=== PATIENT | male | born 1940 | race Caucasian/White ===

== ENCOUNTER 2017-02-12 08:00 | Outpatient (CLI) | payer MEDICARE, OTHER | END 2017-02-12 23:59 | DX: N18.9 Chronic kidney disease, unspecified (principal); R53.83 Other fatigue ==

== ENCOUNTER 2017-04-16 08:00 | Outpatient (CLI) | payer MEDICARE, OTHER ==
[2017-04-16 14:02] LABS: CALCIUM 9.2 mg/dL (8.5-10.3); CREATININE 1.4 mg/dL (0.6-1.2); POTASSIUM 4.1 mmol/L (3.5-5.0)
== END 2017-04-16 08:01 | disposition home or self-care (01) ==
LOC: LAB.WCP 08:00
PROVIDERS: ATTEND Physician Assistant Medical
DX: N18.9 Chronic kidney disease, unspecified (principal)
CPT/HCPCS: 36415; 80048

== ENCOUNTER 2017-05-12 09:21 | Outpatient (CLI) | payer MEDICARE, OTHER ==
[2017-05-12 12:59] LABS: BASOPHILS % (AUTO) 0.6 %; EOSINOPHILS # (AUTO) 0.2 10^3/uL (0.0-0.7); HCT - HEMATOCRIT 39.2 % (42.0-52.0); HGB - HEMOGLOBIN 13.4 g/dL (14.0-18.0); LYMPHOCYTES # (AUTO) 0.8 10^3/uL (1.5-3.5); MEAN CORPUSCULAR HEMOGLOBIN 30.2 pg (27.0-31.0); MEAN CORPUSCULAR VOLUME 88.8 fL (80.0-94.0); MEAN PLATELET VOLUME 8.2 fL (7.4-11.4); MONOCYTES # (AUTO) 0.6 10^3/uL (0.0-1.0); NEUTROPHILS # (AUTO) 5.4 10^3/uL (1.5-6.6); NEUTROPHILS % (AUTO) 76.4 %; RED BLOOD COUNT 4.42 10^6/uL (4.70-6.10); RED CELL DISTRIBUTION WIDTH 13.5 % (12.0-15.0)
[2017-05-12 13:10] LABS: ALBUMIN/GLOBULIN RATIO 1.7 (1.0-2.2); CALCIUM 9.3 mg/dL (8.5-10.3); CREATININE 1.5 mg/dL (0.6-1.2); POTASSIUM 4.3 mmol/L (3.5-5.0)
== END 2017-05-12 09:22 | disposition home or self-care (01) ==
LOC: LAB.WCP 09:21
PROVIDERS: ATTEND Physician Assistant Medical
DX: R42 Dizziness and giddiness (principal); Z51.81 Encounter for therapeutic drug level monitoring
CPT/HCPCS: 36415; 80053; 85025

== ENCOUNTER 2017-05-13 13:28 | Outpatient (CLI) | payer MEDICARE, OTHER ==
--- NOTE | 2017-05-14 08:05 | Ultrasound Report ---
CAROTID DUPLEX: 05/13/2017 CLINICAL HISTORY: Dizziness and giddiness. TECHNIQUE: Real-time sonographic vascular imaging was performed by the agricultural education professor through the carotid arteries utilizing both color-flow and Doppler spectral analysis. Multiple veterans employment representative static images were saved for review. Vessel PSV cm/sec 2D Plaque Estimate % ICA/CCA PSV EDV cm/sec % Stenosis RCCA Prox 83 -- RCCA Dist 84 22 RECA 99 -- RT BULB 68 -- 0.81 9 YAIR Prox 71 -- 0.85 26 YAIR Mid 101 -- 1.20 39 YAIR Dist 124 -- 1.48 48 RVA 89 RVA flow direction: Antegrade. Vessel PSV cm/sec 2D Plaque Estimate % ICA/CCA PSV EDV cm/sec % Stenosis LCCA Prox 132 -- LCCA Dist 105 23 LECA 121 -- LFT BULB 87 -- 0.83 26 LICA Prox 85 -- 0.81 30 LICA Mid 81 -- 0.77 31 LICA Dist 82 -- 0.78 31 LVA 40 LVA flow direction: Antegrade. Velocity criteria are extrapolated from diameter data as defined by the Society of Radiologists in Ultrasound Consensus Conference Radiology 2003; 229; 340-346. Degree of Stenosis % ICA PSV cm/sec Plaque Estimate % ICA/CCA RSV Ratio ICA EDV cm/sec Normal < 125 None < 2.0 < 40 <50 < 125 < 50 < 2.0 < 40 50-69 125 - 130 >/= 50 2.0 - 4.0 40 - 100 >/= 70 but less than near occlusion > 230 >/= 50 > 4.0 > 100 Near occlusion High, low, or undetectable Visible lumen Variable Variable Total occlusion Undetectable No detectable lumen Not applicable Not applicable FINDINGS: The examination was done with a [employer] color Doppler scanning system. RIGHT: The right carotid artery demonstrates minimal plaque at its bifurcation. No hemodynamically significant stenosis is seen. Pulse Doppler indicates no hemodynamically significant stenosis in either the internal carotid or external carotid. The right vertebral artery appears to be the dominant vertebral artery and shows normal antegrade flow. LEFT: The left carotid artery shows mild plaque at its bifurcation some of which is calcific. Visually, no hemodynamically significant stenosis is seen. Pulse Doppler evaluation demonstrates no hemodynamically significant stenosis in either the left internal carotid artery or left external carotid artery. Antegrade flow is seen in the left vertebral artery. IMPRESSION: 1. MILD PLAQUE IS NOTED IN EACH CAROTID ARTERY BIFURCATION WITH NO HEMODYNAMICALLY SIGNIFICANT STENOSIS SEEN IN EITHER CAROTID ARTERY. 2. VERTEBRAL ARTERIES BILATERALLY SHOW ANTEGRADE FLOW. THE RIGHT VERTEBRAL ARTERY IS THE DOMINANT VERTEBRAL ARTERY. MACY
== END 2017-05-13 13:29 | disposition home or self-care (01) ==
LOC: DI 13:28
PROVIDERS: ATTEND Physician Assistant Medical
DX: R42 Dizziness and giddiness (principal)
CPT/HCPCS: 93880

== ENCOUNTER 2017-06-01 12:43 | Outpatient (CLI) | payer MEDICARE, OTHER | END 2017-06-01 12:44 | disposition home or self-care (01) | LOC: DI 12:43 | PROVIDERS: ATTEND Physician Assistant Medical | DX: R42 Dizziness and giddiness (principal); I51.7 Cardiomegaly | CPT/HCPCS: 93306 ==

== ENCOUNTER 2017-08-11 09:18 | Day surgery (SDC) | payer MEDICARE, OTHER ==
[2017-08-11] MEDS ORDERED: LACTATED RINGERS 1,000 ML IV ONE (09:34)
[2017-08-11] MEDS ORDERED: MIDAZOLAM 2 MG/2 ML VIAL IVP ONE (10:23)
[2017-08-11] MEDS ORDERED: fentaNYL 100 MCG/2 ML VIAL IVP ONE (10:23)
[2017-08-11 11:16] VITALS: BP 111/50
== END 2017-08-11 09:19 | disposition home or self-care (01) ==
LOC: SDS 09:18
PROVIDERS: ATTEND Internal Medicine
PROC: 0DJD8ZZ Inspection of Lower Intestinal Tract, Via Natural or Artificial Opening Endoscopic (ICD-10-PCS; principal; 2017-08-11 10:00)
DX: Z12.11 Encounter for screening for malignant neoplasm of colon (principal); Z86.010 Personal history of colon polyps; Z80.0 Family history of malignant neoplasm of digestive organs; I10 Essential (primary) hypertension; E78.00 Pure hypercholesterolemia, unspecified; N40.0 Benign prostatic hyperplasia without lower urinary tract symptoms
CPT/HCPCS: G0105; J7120

== ENCOUNTER 2017-09-10 11:44 | Outpatient (CLI) | payer MEDICARE, OTHER ==
--- NOTE | 2017-09-10 13:14 | CT Report ---
CT CHEST WITHOUT CONTRAST: 09/10/2017 CLINICAL INDICATION: Followup pulmonary nodule. COMPARISON: 07/15/2016, 09/13/2015 TECHNIQUE: Axial CT images of the chest were obtained without intravenous contrast. In accordance with CT protocol optimization, one or more of the following dose reduction techniques w ere utilized for this exam: automated exposure control, adjustment of mA and/or KV based on patient size, or use of iterative reconstructive technique. FINDINGS: The heart and great vessels demonstrate atherosclerotic calcifications. No hilar or media lymphadenopathy is appreciated. The lungs demonstrate dependent atelectasis. The subpleural nodule in the posterior left lower lobe is stable, measuring 5 mm. No effusion or pneumothorax is present. Limited evaluation of upper abdominal structures demonstrates normal adrenal glands. Osseous struc tures demonstrate degenerative changes. IMPRESSION: STABLE 5-MM NODULE IN THE POSTERIOR LEFT LOWER LOBE. NO FURTHER FOLLOWUP IS RECOMMENDED BY [employer]. JOB #: [id number] EXT JOB #:[id number]
== END 2017-09-10 11:45 | disposition home or self-care (01) ==
LOC: DI 11:44
PROVIDERS: ATTEND Physician Assistant Medical
DX: R91.1 Solitary pulmonary nodule (principal)
CPT/HCPCS: 71250

== ENCOUNTER 2018-06-28 16:00 | Emergency (ER) | payer MEDICARE, OTHER ==
--- NOTE | 2018-06-28 19:20 | Ultrasound Report ---
Procedure Date: 06/28/2018 Accession Number: [id number] / [id number] Procedure: US - Duplex Ext Veins Left CPT Code: FULL RESULT: EXAM: LEFT LOWER EXTREMITY VENOUS ULTRASOUND EXAM DATE: 06/28/2018 05:51 PM. CLINICAL HISTORY: Leg swelling and positive D-dimer test. COMPARISON: None. TECHNIQUE: Real-time sonographic vascular imaging was performed by the tennis net maker through the lower extremity utilizing both color-flow and Doppler spectral analysis. Multiple retail service representative static images were saved for review. FINDINGS: Common Femoral Vein (CFV): Normal. CFV-GSV Junction: Normal. Femoral Vein (FV) Prox: Normal. Femoral Vein (FV) Mid: Normal. Femoral Vein (FV) Dist: Normal. Popliteal Vein: Normal. Posterior Tibial Veins: Normal. Peroneal Veins: Normal. Contralateral Side CFV: Normal. Other: Mild soft tissue subcutaneous edema in the calf. IMPRESSION: No evidence for left lower extremity deep venous thrombosis. RADIA
--- NOTE | 2018-06-28 19:37 | ED Physician Documentation ---
PD HPI LOWER EXT INJURY - Stated complaint Stated Complaint: SENT BY DOC - Chief complaint Chief Complaint: Ext Problem - History obtained from History obtained from: Patient - History of Present Illness PD HPI LOW EXT INJURY LOCATION: Left, Lower leg, Ankle Type of injury: Other (has had increased edema in left leg the past couple of weeks. Has ongoing edema in right leg from prior DVT years ago. No noted injury. PMD did d-dimer in office and it was elevated, so referred him to ER for U/S.). No: Fall, Twist Timing - onset: How many weeks ago (1-2) Timing - details: Gradual onset, Still present Review of Systems Cardiac: denies: Chest pain / pressure, Palpitations Respiratory: denies: Dyspnea, Cough Skin: denies: Rash, Lesions PD PAST MEDICAL HISTORY - Past Medical History Cardiovascular: Hypertension, High cholesterol Respiratory: None Endocrine/Autoimmune: None GI: Colon polyps : Benign prostate hypertrophy HEENT: Chronic vision loss, Chronic hearing loss Psych: None Musculoskeletal: Chronic back pain Derm: Other - Past Surgical History Past Surgical History: Yes General: Cholecystectomy Ortho: Spine surgery, Other HEENT: Tonsil/Adenoidectomy - Present Medications Home Medications: Ambulatory Orders Medication Instructions Recorded Confirmed Lisinopril [Zestril] 5 mg PO DAILY 09/08/15 08/11/17 Cholecalciferol (Vitamin D3) 2,000 unit PO DAILY 09/27/15 08/11/17 [Vitamin D3] Lovastatin 40 mg PO DAILY 09/27/15 08/11/17 Zinc 50 mg PO DAILY 09/27/15 08/11/17 Chlorthalidone 25 mg PO DAILY 08/11/17 08/11/17 Furosemide [Lasix] 20 mg PO DAILY 08/11/17 08/11/17 Potassium Chloride [Micro-K] 10 meq PO DAILY 08/11/17 08/11/17 Tamsulosin HCl [Flomax] 0.4 mg PO DAILY 08/11/17 08/11/17 - Allergies Allergies/Adverse Reactions: Allergies Allergy/AdvReac Type Severity Reaction Status Date / Time No Known Drug Allergies Allergy Verified 06/28/18 16:07 - Social History Does the pt smoke?: No Smoking Status: Never smoker Does the pt drink ETOH?: No Does the pt have substance abuse?: No - Immunizations Immunizations are current?: Yes PD ED PE NORMAL - Vitals Vital signs reviewed: Yes - General General: Alert and oriented X 3, No acute distress, Well developed/nourished - Cardiac Cardiac: RRR, No murmur - Respiratory Respiratory: No respiratory distress, Clear bilaterally - Abdomen Abdomen: Soft, Non tender - Back Back: No CVA TTP - Derm Derm: Normal color, Warm and dry - Extremities Extremities: Other (2+ edema in both legs. Some tenderness laterally in left calf. No tenderness at popliteal area. ) - Neuro Neuro: Alert and oriented X 3, No motor deficit, No sensory deficit, Normal speech Results - Vitals Vitals: Vital Signs - 24 hr 06/28/18 06/28/18 16:04 19:44 Temperature 35.7 C L Heart Rate 75 68 Respiratory 16 17 Rate Blood Pressure 150/74 H 147/84 H O2 Saturation 98 98 Oxygen O2 Source Room air - Rads (name of study) left leg venous duplex Radiology: Prelim report reviewed (no DVT) PD MEDICAL DECISION MAKING - ED course Complexity details: reviewed results (duplex shows no DVT. Consider repeat U/S if symptoms worsen in about a week. ), considered differential (has had leg edema with history of DVT in the past, so PMD sent him to ER for U/S duplex after office d-dimer resulted high. ), d/w patient - Sepsis Event Vital Signs: Vital Signs - 24 hr 06/28/18 06/28/18 16:04 19:44 Temperature 35.7 C L Heart Rate 75 68 Respiratory 16 17 Rate Blood Pressure 150/74 H 147/84 H O2 Saturation 98 98 Oxygen O2 Source Room air Departure - Departure Disposition: 01 Home, Self Care Clinical Impression: Leg edema Clinical Impression: (Ruled Out): Deep venous thrombosis Condition: Stable Record reviewed to determine appropriate education?: Yes Instructions: ED Edema Legs Bilateral Follow-Up: Noel Cheema MD [Primary Care Provider] - Comments: Continue usual medications including the diuretics. Use compressive stockings during the day. Elevate your legs tonight. There are no signs of blood clot on your ultrasound. Discharge Date/Time: 06/28/18 19:47
[2018-06-28 19:45] VITALS: BP 147/84
== END 2018-06-28 19:47 | disposition home or self-care (01) ==
LOC: ED 16:00
DX: R60.0 Localized edema (principal); Z86.718 Personal history of other venous thrombosis and embolism; I10 Essential (primary) hypertension; E78.00 Pure hypercholesterolemia, unspecified
CPT/HCPCS: 99283

== ENCOUNTER 2019-06-26 08:00 | Outpatient (CLI) | payer MEDICARE, OTHER ==
[2019-06-26 12:51] LABS: BASOPHILS % (AUTO) 0.3 %; EOSINOPHILS # (AUTO) 0.3 10^3/uL (0.0-0.7); HGB - HEMOGLOBIN 14.1 g/dL (14.0-18.0); LYMPHOCYTES # (AUTO) 0.9 10^3/uL (1.5-3.5); LYMPHOCYTES % (AUTO) 12.7 %; MEAN CORPUSCULAR HEMOGLOBIN 28.5 pg (27.0-31.0); MEAN CORPUSCULAR HGB CONC 31.4 g/dL (32.0-36.0); MEAN CORPUSCULAR VOLUME 90.9 fL (80.0-94.0); MEAN PLATELET VOLUME 10.6 fL (7.4-11.4); MONOCYTES # (AUTO) 0.6 10^3/uL (0.0-1.0); MONOCYTES % (AUTO) 8.1 %; PLT - PLATELET COUNT 161 10^3/uL (130-450); RED BLOOD COUNT 4.94 10^6/uL (4.70-6.10); RED CELL DISTRIBUTION WIDTH 14.2 % (12.0-15.0); WHITE BLOOD COUNT 6.8 x10^3/uL (4.8-10.8)
[2019-06-26 13:18] LABS: ALBUMIN 4.1 g/dL (3.2-5.5); ALBUMIN/GLOBULIN RATIO 1.6 (1.0-2.2); ALKALINE PHOSPHATASE 58 IU/L (42-121); ALT ALANINE AMINOTRANSFERASE 22 IU/L (10-60); AST ASPARTATE AMINOTRANSFERASE 18 IU/L (10-42); BILIRUBIN,TOTAL 1.3 mg/dL (0.2-1.0); BUN - BLOOD UREA NITROGEN 19 mg/dL (6-20); CALCIUM 9.2 mg/dL (8.5-10.3); CARBON DIOXIDE - CO2 25 mmol/L (21-32); CHLORIDE 107 mmol/L (101-111); CHOL/HDL RATIO 4.2 (<5.0); CHOLESTEROL 147 mg/dL; CREATININE 1.3 mg/dL (0.6-1.2); GFR - MDRD 54 (>89); GLUCOSE 104 mg/dL (70-100); HDL CHOLESTEROL 35 mg/dL; HEMOGLOBIN A1C 0.63 g/dL; LDL CHOLESTEROL,CALCULATED 91 mg/dL; LDL/HDL RATIO 2.6 (<3.6); SODIUM 142 mmol/L (135-145); TOTAL PROTEIN 6.6 g/dL (6.7-8.2); VLDL CHOLESTEROL 21 mg/dL
== END 2019-06-26 23:59 | disposition home or self-care (01) ==
LOC: LAB.WCP 08:00
PROVIDERS: ATTEND Family Medicine
DX: E78.00 Pure hypercholesterolemia, unspecified (principal); R73.01 Impaired fasting glucose; I10 Essential (primary) hypertension
CPT/HCPCS: 36415; 80053; 80061; 83036; 83721; 85025

== ENCOUNTER 2019-12-04 08:00 | Outpatient (CLI) | payer MEDICARE, OTHER ==
[2019-12-04 18:52] LABS: ALBUMIN 4.4 g/dL (3.2-5.5); ALKALINE PHOSPHATASE 58 IU/L (42-121); ALT ALANINE AMINOTRANSFERASE 26 IU/L (10-60); AST ASPARTATE AMINOTRANSFERASE 19 IU/L (10-42); BILIRUBIN,TOTAL 1.3 mg/dL (0.2-1.0); BUN - BLOOD UREA NITROGEN 24 mg/dL (6-20); CALCIUM 9.4 mg/dL (8.5-10.3); CARBON DIOXIDE - CO2 27 mmol/L (21-32); CHLORIDE 104 mmol/L (101-111); CHOL/HDL RATIO 3.8 (<5.0); CHOLESTEROL 159 mg/dL; CREATININE 1.3 mg/dL (0.6-1.2); GFR - MDRD 54 (>89); GLUCOSE 96 mg/dL (70-100); HDL CHOLESTEROL 42 mg/dL; LDL CHOLESTEROL,CALCULATED 98 mg/dL; LDL/HDL RATIO 2.3 (<3.6); SODIUM 140 mmol/L (135-145); TOTAL PROTEIN 6.6 g/dL (6.7-8.2); VLDL CHOLESTEROL 19 mg/dL
== END 2019-12-04 23:59 | disposition home or self-care (01) ==
LOC: LAB.WCP 08:00
PROVIDERS: ATTEND Physician Assistant Medical
DX: E78.00 Pure hypercholesterolemia, unspecified (principal); R73.01 Impaired fasting glucose
CPT/HCPCS: 36415; 80053; 80061; 83721

== ENCOUNTER 2021-01-16 08:00 | Outpatient (CLI) | payer MEDICARE, OTHER ==
[2021-01-16 17:55] LABS: BASOPHILS % (AUTO) 0.2 %; EOSINOPHILS # (AUTO) 0.1 10^3/uL (0.0-0.7); EOSINOPHILS % (AUTO) 1.6 %; HGB - HEMOGLOBIN 14.7 g/dL (14.0-18.0); LYMPHOCYTES # (AUTO) 0.8 10^3/uL (1.5-3.5); LYMPHOCYTES % (AUTO) 13.8 %; MEAN CORPUSCULAR HEMOGLOBIN 30.5 pg (27.0-31.0); MEAN CORPUSCULAR HGB CONC 33.2 g/dL (32.0-36.0); MEAN CORPUSCULAR VOLUME 91.9 fL (80.0-94.0); MEAN PLATELET VOLUME 10.3 fL (7.4-11.4); MONOCYTES # (AUTO) 0.4 10^3/uL (0.0-1.0); MONOCYTES % (AUTO) 7.1 %; NEUTROPHILS # (AUTO) 4.7 10^3/uL (1.5-6.6); NEUTROPHILS % (AUTO) 76.8 %; PLT - PLATELET COUNT 186 10^3/uL (130-450); RED BLOOD COUNT 4.82 10^6/uL (4.70-6.10); RED CELL DISTRIBUTION WIDTH 13.1 % (12.0-15.0); WHITE BLOOD COUNT 6.1 x10^3/uL (4.8-10.8)
[2021-01-16 18:06] LABS: ALBUMIN 4.4 g/dL (3.2-5.5); ALBUMIN/GLOBULIN RATIO 1.8 (1.0-2.2); ALKALINE PHOSPHATASE 66 IU/L (42-121); ALT ALANINE AMINOTRANSFERASE 18 IU/L (10-60); AST ASPARTATE AMINOTRANSFERASE 20 IU/L (10-42); BILIRUBIN,TOTAL 1.3 mg/dL (0.2-1.0); BUN - BLOOD UREA NITROGEN 18 mg/dL (6-20); CARBON DIOXIDE - CO2 28 mmol/L (21-32); CHLORIDE 101 mmol/L (101-111); CHOL/HDL RATIO 3.6 (<5.0); CHOLESTEROL 167 mg/dL; CREATININE 1.1 mg/dL (0.6-1.2); GLUCOSE 85 mg/dL (70-100); HDL CHOLESTEROL 46 mg/dL; LDL CHOLESTEROL,CALCULATED 108 mg/dL; LDL/HDL RATIO 2.3 (<3.6); TOTAL PROTEIN 6.9 g/dL (6.7-8.2); VLDL CHOLESTEROL 13 mg/dL
== END 2021-01-16 23:59 | disposition home or self-care (01) ==
LOC: LAB.WCP 08:00
PROVIDERS: ATTEND Physician Assistant Medical
DX: E78.00 Pure hypercholesterolemia, unspecified (principal); I10 Essential (primary) hypertension
CPT/HCPCS: 36415; 80053; 80061; 83721; 85025

== ENCOUNTER 2021-05-24 10:45 | Emergency (ER) | payer MEDICARE, OTHER ==
[2021-05-24] MEDS ORDERED: DEXAMETHASONE 10 MG/ML VIAL IVP STA (11:10)
--- NOTE | 2021-05-24 11:11 | ED Physician Documentation ---
PD HPI FOCAL NEURO - Stated complaint Stated Complaint: UNSTEADY/LEFT SIDE WEAKNESS - Chief complaint Chief Complaint: Neuro - History obtained from History obtained from: Patient, Family - History of Present Illness Timing - onset: Enter time (929), Today Timing - duration: Minutes Timing - details: Abrupt onset, Still present Severity of deficit: Moderate Weakness: Face, Left Numbness: No: Face, Arm, Hand, Leg, Foot, Right, Left Associated symptoms: No: Headache, Nausea / vomiting, Seizure, Syncope, Fall, Head injury, Chest pain, Neck pain, Back pain, Fever Contributing factors: negative: Anticoagulated Baseline status: positive: A&OX3, ambulatory, indep Similar symptoms before: Has not had sx before Recently seen: Not recently seen - Additional information Additional information: 80-year-old male was in his usual state of health and this morning he was shaving and he noticed that the left side of his face was drooped. He was able to smile. He denies any numbness or tingling to the left side of his body he denies any weakness to the left side. He is under a lot of stress with a son who has Covid and is in the hospital right now. Review of Systems Constitutional: denies: Fever Eyes: denies: Decreased vision Ears: denies: Loss of hearing, Ear pain, Drainage/discharge Nose: denies: Rhinorrhea / runny nose, Congestion Throat: denies: Sore throat Cardiac: denies: Chest pain / pressure, Palpitations Respiratory: denies: Dyspnea, Cough GI: denies: Abdominal Pain, Abdominal Swelling, Nausea, Vomiting, Diarrhea : denies: Dysuria, Frequency Skin: denies: Rash Musculoskeletal: denies: Neck pain, Back pain, Extremity pain Neurologic: reports: Focal weakness (Left face). denies: Generalized weakness, Numbness, Headache, Head injury, LOC PD PAST MEDICAL HISTORY - Past Medical History Cardiovascular: Hypertension, High cholesterol Respiratory: None Endocrine/Autoimmune: None GI: Colon polyps : Benign prostate hypertrophy HEENT: Chronic vision loss, Chronic hearing loss Psych: None Musculoskeletal: Chronic back pain Derm: Other - Past Surgical History Past Surgical History: Yes General: Cholecystectomy Ortho: Spine surgery, Other HEENT: Tonsil/Adenoidectomy - Present Medications Home Medications: Ambulatory Orders Medication Instructions Recorded Confirmed lisinopriL [Zestril] 10 mg PO DAILY 09/08/15 05/24/21 Cholecalciferol (Vitamin D3) 2,000 unit PO DAILY 09/27/15 05/24/21 [Vitamin D3] Zinc 50 mg PO DAILY 09/27/15 05/24/21 Furosemide [Lasix] 20 mg PO DAILY 08/11/17 05/24/21 Potassium Chloride [Micro-K] 10 meq PO DAILY 08/11/17 05/24/21 Tamsulosin HCl [Flomax] 0.4 mg PO DAILY 08/11/17 05/24/21 Simvastatin [Zocor] 40 mg PO HS 05/24/21 05/24/21 - Allergies Allergies/Adverse Reactions: Allergies Allergy/AdvReac Type Severity Reaction Status Date / Time No Known Drug Allergies Allergy Verified 05/24/21 11:05 - Social History Does the pt smoke?: No Smoking Status: Never smoker Does the pt drink ETOH?: No Does the pt have substance abuse?: No - Immunizations Immunizations are current?: Yes PD ED PE NORMAL - Vitals Vital signs reviewed: Yes (Hypertensive) - General General: Alert and oriented X 3, No acute distress, Well developed/nourished, Other (Resting facial expression has a droop to the left side.) - HEENT HEENT: Atraumatic, PERRL, EOMI, Ears normal, Moist mucous membranes, Pharynx benign, Dentition benign - Neck Neck: Supple, no meningeal sign, No bony TTP - Cardiac Cardiac: RRR, No murmur - Respiratory Respiratory: No respiratory distress, Clear bilaterally - Abdomen Abdomen: Normal bowel sounds, Soft, Non tender, Non distended, No organomegaly - Back Back: No CVA TTP, No spinal TTP - Derm Derm: Normal color, Warm and dry, No rash - Extremities Extremities: No deformity, No edema - Neuro Neuro: Alert and oriented X 3, care worker 2-12 intact, No motor deficit, No sensory deficit, Normal speech Eye Opening: Spontaneous Motor: Obeys Commands Verbal: Oriented GCS Score: 15 - Psych Psych: Normal mood, Normal affect NIHSS - Time Time: 11:20 - Level of Consciousness Level of consciousness: (0) Alert, Keenly responsive LOC Questions: (0) Answers both Q's correct LOC Commands: (0) Performs both correctly - Gaze Best Gaze: (0) Normal - Visual Visual: (0) No loss - Facial Palsy Facial Palsy: (1) Minor paralysis - Motor Arms (both separate) Motor Arm (right): (0) No drift Motor Arm (left): (0) No drift - Motor Legs (both separate) Motor Leg (right): (0) No drift Motor Leg (left): (0) No drift - Limb Ataxia Limb Ataxia: (0) Absent - Sensory Sensory: (0) Normal - Best Language Best Language: (0) No aphasia - Dysarthria Dysarthria: (0) Normal - Extinction and Inattention (formally neg Extinction and inattention: (0) No abnormality - Total Score/Results Total Score/Result: 1 Results - Vitals Vitals: Vital Signs - 24 hr 05/24/21 05/24/21 05/24/21 11:05 11:22 12:08 Temperature 36.6 C Heart Rate 77 63 61 Respiratory 20 22 14 Rate Blood Pressure 185/98 H 181/92 H 151/84 H O2 Saturation 96 94 95 Oxygen O2 Source Room air - EKG (time done) 1113 Rate: Rate (enter#) (63) Rhythm: NSR [place]: LAD Compare to prior EKG: Unchanged from prior EKG (SPT 09-14-2015 no changes) Computer interpretation: Agree with computer - Labs Labs: Laboratory Tests 05/24/21 05/24/21 10:55 10:55 WBC 6.8 RBC 4.99 Hgb 14.9 Hct 45.3 MCV 90.8 MCH 29.9 MCHC 32.9 RDW 12.9 Plt Count 177 MPV 9.6 Neut # (Auto) 5.3 Lymph # (Auto) 0.9 L [place] # (Auto) 0.4 Eos # (Auto) 0.1 Baso # (Auto) 0.0 Absolute Nucleated RBC 0.00 Nucleated RBC % 0.0 Sodium 138 Potassium 4.4 Chloride 104 Carbon Dioxide 24 Anion Gap 10.0 BUN 18 Creatinine 1.1 Estimated GFR (MDRD) 65 L Glucose 112 H Calcium 9.5 Total Bilirubin 1.7 H AST 17 ALT 16 Alkaline Phosphatase 70 Total Protein 7.4 Albumin 4.7 Globulin 2.7 Albumin/Globulin Ratio 1.7 Lipase 29 - Rads (name of study) CT head Radiology: Prelim report reviewed (Impression: 1. There is an age-related volume loss and mild to moderate periventricular white matter change consistent with small vessel ischemic change. No evidence of acute stroke, hemorrhage, or mass.), EMP read indepedently, See rad report PD MEDICAL DECISION MAKING - ED course Complexity details: reviewed results, re-evaluated patient, considered differential, d/w patient, d/w family ED course: 80-year-old male who is under stress has developed a left facial droop this appears to be an isolated finding it is only to the lower portion of the nerve.CT scan of the head is unremarkable. He is in sinus rhythm and has no other specific findings to be concern for stroke. 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 He is administered dexamethasone 10 mg intravenously. Departure - Departure Disposition: 01 Home, Self Care Clinical Impression: Choudhury's palsy Condition: Stable Instructions: ED Parsons Palsy Follow-Up: Swapna Qureshi PA-C [Primary Care Provider] -
[2021-05-24 11:22] LABS: BASOPHILS % (AUTO) 0.3 %; EOSINOPHILS # (AUTO) 0.1 10^3/uL (0.0-0.7); EOSINOPHILS % (AUTO) 1.6 %; HCT - HEMATOCRIT 45.3 % (42.0-52.0); HGB - HEMOGLOBIN 14.9 g/dL (14.0-18.0); LYMPHOCYTES # (AUTO) 0.9 10^3/uL (1.5-3.5); LYMPHOCYTES % (AUTO) 13.5 %; MEAN CORPUSCULAR HEMOGLOBIN 29.9 pg (27.0-31.0); MEAN CORPUSCULAR HGB CONC 32.9 g/dL (32.0-36.0); MEAN CORPUSCULAR VOLUME 90.8 fL (80.0-94.0); MEAN PLATELET VOLUME 9.6 fL (7.4-11.4); MONOCYTES # (AUTO) 0.4 10^3/uL (0.0-1.0); MONOCYTES % (AUTO) 6.5 %; NEUTROPHILS # (AUTO) 5.3 10^3/uL (1.5-6.6); NEUTROPHILS % (AUTO) 77.7 %; PLT - PLATELET COUNT 177 10^3/uL (130-450); RED BLOOD COUNT 4.99 10^6/uL (4.70-6.10); RED CELL DISTRIBUTION WIDTH 12.9 % (12.0-15.0); WHITE BLOOD COUNT 6.8 x10^3/uL (4.8-10.8)
[2021-05-24 11:44] LABS: ALBUMIN 4.7 g/dL (3.2-5.5); BILIRUBIN,TOTAL 1.7 mg/dL (0.2-1.0); CALCIUM 9.5 mg/dL (8.5-10.3); CREATININE 1.1 mg/dL (0.6-1.2); POTASSIUM 4.4 mmol/L (3.5-5.0); TOTAL PROTEIN 7.4 g/dL (6.7-8.2)
[2021-05-24 11:45] LABS: ALBUMIN/GLOBULIN RATIO 1.7 (1.0-2.2)
--- NOTE | 2021-05-24 11:59 | CT Report ---
PROCEDURE: HEAD WO INDICATIONS: left facial droop TECHNIQUE: Noncontrast 4.5 mm thick angled axial sections acquired from the foramen magnum to the vertex. For r adiation dose reduction, the following was used: automated exposure control, adjustment of mA and/or kV according to patient size. COMPARISON: None. FINDINGS: Image quality: Excellent. CSF spaces: Basal cisterns are patent. No extra-axial fluid collections. Ventricles are normal in size and shape. Brain: No midline shift. No intracranial masses or hemorrhage. Queen-white matter interface is norm al. Age-related volume loss and mild to moderate small vessel ischemic change. Skull and face: Calvarium and visualized facial bones are intact, without suspicious lesions. Sinuses: Visualized sinuses and mastoids are clear. IMPRESSION: 1. There is age-related volume loss and mild to moderate periventricular white matter change consiste nt with small vessel ischemic change. 2. No evidence of acute stroke, hemorrhage, or mass. Reviewed by: Giancarlo Rios MD on 05/24/2021 10:58 AM BUZZ Approved by: Giancarlo Rios MD on 05/24/2021 10:58 AM BUZZ Station ID: [id number]
[2021-05-24 12:09] VITALS: BP 151/84
== END 2021-05-24 12:49 | disposition home or self-care (01) ==
LOC: ED 10:45
DX: G51.0 Bell's palsy (principal)
CPT/HCPCS: 36415; 80053; 83690; 85025; 93005; 96374; 99284

== ENCOUNTER 2021-06-26 13:44 | Outpatient (CLI) | payer MEDICARE, OTHER | END 2021-06-26 13:45 | disposition short-term general hospital (02) | LOC: EMS 13:44 | DX: R55 Syncope and collapse (principal) | CPT/HCPCS: A0425; A0427 ==

== ENCOUNTER 2021-07-06 11:47 | Outpatient (CLI) | payer MEDICARE, OTHER | END 2021-07-06 11:48 | disposition short-term general hospital (02) | LOC: EMS 11:47 | DX: R55 Syncope and collapse (principal); R11.10 Vomiting, unspecified | CPT/HCPCS: A0425; A0427 ==

== ENCOUNTER 2021-08-12 21:12 | Outpatient (CLI) | payer MEDICARE, OTHER | END 2021-08-12 21:13 | disposition EMS.NT | LOC: EMS 21:12 | DX: Z03.89 Encounter for observation for other suspected diseases and conditions ruled out (principal) ==

== ENCOUNTER 2021-08-19 08:00 | Outpatient (CLI) | payer MEDICARE, OTHER ==
[2021-08-19 18:16] LABS: ALBUMIN 3.5 g/dL (3.2-5.5); ALBUMIN/GLOBULIN RATIO 1.3 (1.0-2.2); ALKALINE PHOSPHATASE 81 IU/L (42-121); ALT ALANINE AMINOTRANSFERASE 19 IU/L (10-60); AST ASPARTATE AMINOTRANSFERASE 15 IU/L (10-42); BILIRUBIN,TOTAL 1.5 mg/dL (0.2-1.0); BUN - BLOOD UREA NITROGEN 14 mg/dL (6-20); CALCIUM 8.7 mg/dL (8.5-10.3); CARBON DIOXIDE - CO2 24 mmol/L (21-32); CHLORIDE 103 mmol/L (101-111); CHOL/HDL RATIO 3.5 (<5.0); CHOLESTEROL 119 mg/dL; CREATININE 0.8 mg/dL (0.6-1.2); GFR - MDRD 93 (>89); GLUCOSE 93 mg/dL (70-100); HDL CHOLESTEROL 34 mg/dL; LDL CHOLESTEROL,CALCULATED 67 mg/dL; POTASSIUM 3.4 mmol/L (3.5-5.0); SODIUM 139 mmol/L (135-145); TOTAL PROTEIN 6.3 g/dL (6.7-8.2); TRIGLYCERIDES 90 mg/dL; VLDL CHOLESTEROL 18 mg/dL
== END 2021-08-19 23:59 | disposition home or self-care (01) ==
LOC: LAB.N 08:00
PROVIDERS: ATTEND Physician Assistant Medical
DX: E78.00 Pure hypercholesterolemia, unspecified (principal)
CPT/HCPCS: 36415; 80053; 80061; 83721

== ENCOUNTER 2022-07-21 15:04 | Outpatient (CLI) | payer MEDICARE, OTHER ==
--- NOTE | 2022-07-21 18:26 | Ultrasound Report ---
PROCEDURE: Retroperitoneal INDICATIONS: URINARY RETENTION TECHNIQUE: Real-time scanning was performed of the retroperitoneal organs, with image documentation. COMPARISON: None. FINDINGS: Kidneys: Right kidney measures 11.2 cm with a cortical thickness of 1.5 cm. The left kidney measures 11.3 cm with a cortical thickness of 1.1 cm. No hydronephrosis. Left renal cysts are present, the larger one measuring up to 3.4 cm, the smaller one measuring up to 1.8 cm. These appears simple. Multiple bladder diverticula. No definite mass identified sonographically. Prevoid volume is 407 cc. Postvoid volume is 284 cc. Prostate measures 40 cc. IMPRESSION: No hydronephrosis. Left renal upper pole simple cysts. Postvoid volume is 284 cc. Bladder diverticula suggestive of chronic obstruction. Reviewed by: Stephen Wan MD on 07/21/2022 6:25 PM PDT Approved by: Stephen Wan MD on 07/21/2022 6:25 PM PDT Station ID: [id number]
== END 2022-07-21 15:05 | disposition home or self-care (01) ==
LOC: DI 15:04
PROVIDERS: ATTEND Physician Assistant Medical
DX: N32.3 Diverticulum of bladder (principal); R33.9 Retention of urine, unspecified; Q61.02 Congenital multiple renal cysts

== ENCOUNTER 2024-07-05 17:28 | Outpatient (CLI) | payer MEDICARE, OTHER | END 2024-07-05 23:59 | disposition EMS.NT | LOC: EMS 17:28 | DX: Z03.89 Encounter for observation for other suspected diseases and conditions ruled out (principal) ==